=== PATIENT | male | born 1935 | race Caucasian/White ===

== ENCOUNTER → 2016-10-31 | Outpatient (CLI) | payer MEDICARE, OTHER ==
[~2016-10-31] MED LIST: ALPRAZOLAM0.5 M3 PO; ASMANEX TW0.22 MG/A1 IH; ASPIRIN 81MG TA81 MG PO; CARVEDILOL 1212.5 MG PO; CHOLEST OFF OR; K-DUR20 MEQ PO; LASIX 40MG. TAB40 MG PO; LORTAB 5/500 501 TAB PO; MECLIZINE 25MG25 MG PO; MYSOLINE250 MG PO; NATURAL FISH1200 MG PO; SLOW-MAG 106 MG1 ECT PO; SPIRONOLACTONE25 MG NG; SYNTHROID 0.0.075 MG PO; THEO-TIME300 MG PO; VENTOLIN H0.09 MG/AC IH; [UNRECOGNIZED DRUG - OTHER] PO
--- NOTE | 2016-10-31 16:11 | RADIOLOGY REPORT PS360 ---
EXAM: CERVICAL SPINE 4 OR 5 VIEWS HISTORY: LEFT SHOULDER PAIN ORDERING PHYSICIAN: Ree Herman MD PATIENT AGE: 80 years COMPARISON: None FINDINGS: There is kyphosis of the thoracic cervical junction. Normal alignment of the cervical spine. There is slight decrease in the disc space at C2-C3, C3-C4, C5-C6, and C6-7. Mild facet arthritic changes are present C4-C7 with mild osteophytes of the facets. Foraminal narrowing is present on the right at C4-C5 and on the left at C4 C5. No lytic or blastic change. No evidence of cervical rib. IMPRESSION: 1. 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 2. 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
== END ==
LOC: RAD 14:54
DX: M25.512 Pain in left shoulder (principal)